=== PATIENT | female | born 2000 | race African-American/Black ===

== ENCOUNTER 2019-06-29 02:40 | Emergency (ER) | payer MEDICAID ==
[~2019-06-29] VITALS: Ht 170.2 cm; Wt 56.7 kg
[~2019-06-29 02:40] MED LIST: MUCINEX1200 MG PO; PROMETHAZINE-C118 M1 ORAL; PROMETHAZINE-D118 ML ORAL; VIBRAMYCIN100 MG ORAL
[2019-06-29 02:52] VITALS: BP 118/75
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
--- NOTE | 2019-06-29 02:54 | NUR ---
ED Nurse Note: ERMD at bedside.
[2019-06-29] MEDS ORDERED: Azithromycin 250mg tab ORAL ONE (03:00)
[2019-06-29] MEDS ORDERED: Lidocaine 1% MPF 10mg/ml 5ml INJ ONE (03:00)
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
[2019-06-29 03:11] LABS: APPEARANCE,URINE CLEAR; BILIRUBIN, URINE NEGATIVE (NEGATIVE); GLUCOSE, URINE (UA) NEGATIVE (NEGATIVE); KETONES,URINE 1+ (NEGATIVE); LEUKOCYTE ESTERASE ,URINE 2+ (NEGATIVE); NITRITE,URINE NEGATIVE (NEGATIVE); PH,URINE 5 (4.5-8.0); PROTEIN,URINE 1+ (NEGATIVE); UROBILINOGEN,URINE 1 MG/DL (0.0-1.0)
--- NOTE | 2019-06-29 03:17 | NUR ---
ED Nurse Note: Assisted ERMD with pelvic exam, collected wet mount sample and sent to lab.
[2019-06-29 03:28] LABS: COLOR,URINE YELLOW
[2019-06-29 03:54] VITALS: BP 115/72
--- NOTE | 2019-06-29 03:54 | NUR ---
ER DISCHARGE NOTE: Patient is cleared to be discharged per ERMD, pt is aox4, on room air, with stable vital signs. pt was given dc instructions, pt was able to verbalize understanding, pt id band removed. pt is able to ambulate with steady gait. pt took all belongings. pt stable upon discharge.
== END 2019-06-29 03:54 | disposition home or self-care (01) ==
LOC: EMR 02:57
DX: N72 Inflammatory disease of cervix uteri (principal)
CPT/HCPCS: 81003; 81025; 87210; 96372; 96374; J0696; Q0144; Z7502; 99284

== ENCOUNTER 2020-06-04 20:22 | Emergency (ER) | payer MEDICAID ==
[~2020-06-04] VITALS: Ht 170.2 cm; Wt 55.8 kg
[~2020-06-04 20:22] MED LIST changes: +FLUCONAZOLE100 MG ORAL; +METRONIDAZOLE500 MG ORAL
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
[2020-06-04 20:58] VITALS: BP 123/86
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
[2020-06-04] MEDS ORDERED: Tetanus/Diptheria/Pertussis IM ONE (21:45)
[2020-06-04] MEDS ORDERED: cefTRIAXone 500mg Inj IM ONE (21:45)
[2020-06-04] MEDS ORDERED: EMLA 5gm tube TOPIC ONE (21:45)
[2020-06-04] MEDS ORDERED: Lidocaine 1% MPF 10mg/ml 5ml INJ ONE (21:45)
[2020-06-04] MEDS ORDERED: Doxycycline Monohydrate 100mg ORAL ONE (21:45)
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
--- NOTE | 2020-06-04 23:03 | NUR ---
ED Nurse Note: pt went for imaging. signed refusal for test. pt medicated and let applied. sutured pt. writing a rx and awaiting dc instructions. will continue to monitor.
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
--- NOTE | 2020-06-04 23:15 | NUR ---
ER DISCHARGE NOTE: Patient is cleared to be discharged per ER MD, pt is aox4, on room air, with stable vital signs. pt was given dc and prescription instructions, pt was able to verbalize understanding, pt id band removed without complications. pt is able to ambulate with steady gait. pt took all belongings.
[2020-06-04 23:16] VITALS: BP 121/87
[2020-06-04] MEDS ORDERED: DOXYCYCLINE MO100 MG ORAL (23:17)
[2020-06-04] MEDS ORDERED: HYDROCORT 2.5%-30 GM TP (23:17)
[2020-06-04] MEDS ORDERED: IBUPROFEN600 M1 ORAL (23:17)
--- NOTE | 2020-06-04 23:28 | Diagnostic Imaging Report ---
INDICATION: Cough COMPARISON: FINDINGS: Single frontal view demonstrates a normal cardiomediastinal silhouette. The lungs are clear. No pleural effusions. The visualized osseous structures are within normal limits. IMPRESSION: No acute cardiopulmonary disease.
== END 2020-06-04 23:19 | disposition home or self-care (01) ==
LOC: EMR 21:45
DX: S01.511A Laceration without foreign body of lip, initial encounter (principal); Y04.2XXA Assault by strike against or bumped into by another person, initial encounter; Y92.9 Unspecified place or not applicable; R05 Cough; L30.9 Dermatitis, unspecified; Z20.2 Contact with and (suspected) exposure to infections with a predominantly sexual mode of transmission; Z23 Encounter for immunization
CPT/HCPCS: 12011; 70450; 70486; 71045; 90471; 90715; 96372; J0696; Z7502; 99284